=== PATIENT | female | born 1980 | race Caucasian/White ===

== ENCOUNTER → 2020-06-03 12:14 | Outpatient (CLI) | payer BC, SELFPAY ==
--- NOTE | 2020-06-03 | DI.US.S_ITS ---
PROCEDURE: US PELVIC COMPLETE INDICATIONS: LEFT PELVIC PAIN TECHNIQUE: Real-time scanning was performed of the pelvic organs, with image documentation. Additional endovaginal scanning was necessary due to incomplete visualization of the adnexal and endometrial structures by transabdominal scanning. COMPARISON: None. FINDINGS: Transabdominal scanning: Limited scanning through the kidneys shows no hydronephrosis. No pathologic free abdominal or pelvic fluid. Endovaginal scanning: Uterus: Uterus is normal in size at 10.2 x 5.6 x 6.5 cm. The endometrium measures 6.5 mm in combined thickness. Ovaries: Left ovary measures 3.3 x 2.5 x 2.2 cm and the right ovary is not visualized. Dominant 16 mm left follicular cyst. IMPRESSION: No source for left pelvic pain identified. Dictated by: Silverio Sosa [facility] Interpreted: Wale Philippe MD on 06/03/2020 at 13:02 Approved by: Wale Philippe M.D. on 06/03/2020 at 14:01
== END ==
PROVIDERS: PCP Family Medicine; Referring Provider Naturopath; Visit Provider Naturopath
DX: R10.2 Pelvic and perineal pain (principal)
CPT/HCPCS: 76830; 76856

== ENCOUNTER → 2020-06-19 09:26 | Outpatient (CLI) | payer BC, SELFPAY ==
[2020-06-19 09:54] LABS: COVID19 -Nasal RAPID Negative (Negative)
== END ==
PROVIDERS: PCP Family Medicine; Referring Provider Physician Assistant; Visit Provider Physician Assistant
DX: R09.81 Nasal congestion (principal); R11.0 Nausea; R50.9 Fever, unspecified
CPT/HCPCS: 87635

== ENCOUNTER → 2021-06-05 07:35 | Outpatient (CLI) | payer BC, SELFPAY ==
--- NOTE | 2021-06-05 | DI.MG.S_ITS ---
BILATERAL DIGITAL SCREENING MAMMOGRAM 3D/2D WITH CAD: 06/05/2021 CLINICAL: Baseline exam. Routine screening. Family history of breast cancer. No prior exams were available for comparison. There are scattered fibroglandular elements in both breasts. Current study was also evaluated with a Computer Aided Detection (CAD) system. No significant masses, calcifications, or other findings are seen in either breast. IMPRESSION: NEGATIVE There is no mammographic evidence of malignancy. A 1 year screening mammogram is recommended. This exam was interpreted at Station ID: [id number]. NOTE: For mammograms, a report in lay terms will be sent to the patient. Approximately 15% of breast malignancies will not be visualized mammographically. In the management of a palpable breast mass, a negative mammogram must not discourage biopsy of a clinically suspicious lesion. Electronically Signed By: Skyler stein/fabiana:06/05/2021 10:54:56 letter sent: Normal Exam ACR BI-RADS Category 1: Negative 3341F
== END ==
PROVIDERS: PCP Internal Medicine; Referring Provider Internal Medicine; Visit Provider Internal Medicine
DX: Z12.31 Encounter for screening mammogram for malignant neoplasm of breast (principal); Z80.3 Family history of malignant neoplasm of breast
CPT/HCPCS: 77063; 77067

== ENCOUNTER → 2022-04-08 10:15 | Outpatient (CLI) | payer BC, SELFPAY ==
--- NOTE | 2022-04-08 10:17 | DI.RAD.S_ITS ---
PROCEDURE: XR CHEST 2V INDICATIONS: Cough TECHNIQUE: 2 views of the chest were acquired. COMPARISON: [facility], , CHEST 2 VIEW, 07/14/2016, 12:32. FINDINGS: Surgical changes and devices: None. Lungs and pleura: Lungs are clear. No pleural effusions or pneumothorax. Mediastinum: Mediastinal contours are normal. Heart size is normal. Bones and chest wall: No suspicious bony abnormalities. Soft tissues appear unremarkable. IMPRESSION: Normal chest. No infiltrates. Dictated by: Evan Jaquez M.D. on 04/08/2022 at 10:07 Approved by: Evan Jaquez M.D. on 04/08/2022 at 10:08
== END ==
PROVIDERS: PCP Internal Medicine; Referring Provider Nurse Practitioner Family; Visit Provider Nurse Practitioner Family
DX: R05.9 Cough, unspecified (principal)
CPT/HCPCS: 71046

== ENCOUNTER 2022-06-07 09:10 | Emergency (ER) | payer BC, SELFPAY ==
[2022-06-07] VITALS (7 sets, daily range): BP systolic 116–144; BP diastolic 65–90; PULSE 74–87; RESP 15–26; TEMP 36.4; O2SAT 95–98; BMI 37.2
--- NOTE | 2022-06-07 09:24 | DI.RAD.S_ITS ---
PROCEDURE: XR CHEST 1V INDICATIONS: chest pain TECHNIQUE: One view of the chest was acquired. COMPARISON: None. FINDINGS: Surgical changes and devices: None. Lungs and pleura: Lungs are clear. No pleural effusions or pneumothorax. Mediastinum: Mediastinal contours appear normal. Heart size is normal. Bones and chest wall: No suspicious bony lesions. Overlying soft tissues appear unremarkable. IMPRESSION: No acute cardiopulmonary process demonstrated radiographically. Dictated by: Yo Oconnor M.D. on 06/07/2022 at 9:08 Approved by: Yo Oconnor M.D. on 06/07/2022 at 9:09
[2022-06-07 09:42] LABS: Add Manual Diff / Slide Review NO; Basophils Absolute Auto 100 /uL (0-100); Basophils Percent Auto 0.8 % (0-2); Eosinophils Absolute Auto 500 /uL (0-450); Eosinophils Percent Auto 6.6 % (2-4); Hematocrit 43.3 % (36-46); Hemoglobin 14.6 g/dL (12.0-16.0); Lymphocytes Absolute Auto 2500 /uL (1100-4500); Lymphocytes Percent Auto 29.7 % (25-40); Mean Corpuscular HGB Conc 33.7 % (30-36); Mean Corpuscular Hemoglobin 30.2 PG (26-34); Mean Corpuscular Volume 89.9 fL (80-100); Monocytes Absolute Auto 500 /uL (0-900); Monocytes Percent Auto 6.4 % (3-14); Neutrophils Absolute Auto 4700 /uL (1500-7000); Neutrophils Percent Auto 56.5 % (50-75); Platelet Count 216 X10^3/uL (150-400); Red Blood Cell Count 4.82 X10^6/uL (4.0-5.2); Red Cell Distribution Width 13.5 % (11.6-14.8); White Blood Cell Count 8.3 X10^3/uL (4.5-11.0)
[2022-06-07 09:46] LABS: INR 1.1 (0.9-1.3); Prothrombin Time 12.5 SECONDS (10.1-12.7)
[2022-06-07 09:49] LABS: PTT Partial Thromboplastin Tim 33 SECONDS (26-36)
[2022-06-07 09:51] LABS: Alanine Aminotransferase 33 IU/L (<35); Albumin 4.2 g/dL (3.5-5.0); Albumin Globulin Ratio 1.4 (1.0-2.8); Alkaline Phosphatase 81 U/L (38-126); Aspartate Aminotransferase 26 IU/L (14-36); BUN Creatinine Ratio 26.9 (6-22); Bilirubin Total 0.3 mg/dL (0.2-1.3); Blood Urea Nitrogen 18 mg/dL (7-17); Calcium 8.8 mg/dL (8.4-10.2); Carbon Dioxide 28 mmol/L (22-32); Chloride 103 mmol/L (98-107); Creatine Kinase 48 U/L (30-135); Estimated Glomerular Filt Rate > 60 mL/min (>60); Globulin 3.1 g/dL (1.7-4.1); Glucose 94 mg/dL (70-100); HEMOLYSIS < 15 (0-50); Lipase 55 U/L (23-300); Potassium 3.9 mmol/L (3.4-5.1); Sodium 141 mmol/L (137-145); Total Protein 7.3 g/dL (6.3-8.2)
[2022-06-07 10:02] LABS: Troponin I < 0.012 ng/mL (0.01-0.034)
--- NOTE | 2022-06-07 10:46 | ED_ITS ---
HPI - Chest Pain General Chief Complaint: Chest Pain Stated Complaint: N t-7/ chest ache 3x t-7/upper back pain Time Seen by Provider: 06/07/22 10:40 Source: patient Mode of arrival: Ambulatory Limitations: no limitations History of Present Illness HPI narrative: Patient here this morning for evolving atypical left-sided chest discomfort for the past 2 weeks. Has had off and on left-sided chest discomfort tightness for the past 2 weeks. Has felt very tired especially with walking. Has had unexplained nausea over the weekend. This morning had left upper back discomfort that has resolved. However still has nausea. Patient has family history of early coronary disease in their 30s and 40s. Notably her father. Never had stress test or echocardiogram in the past. Denies any pain at this time. Denies does not want a test. She took 2 home tests which were both negative Related Data Home Medications Medication Instructions Recorded Confirmed cholecalciferol (vitamin D3) 10 4,000 unit PO ##0 07/13/16 04/25/22 mcg/mL (400 unit/mL) oral drops folic acid 800 mcg tablet 0.8 mg PO QDAY ##0 07/13/16 04/25/22 Previous Rx's Medication Instructions Recorded benzonatate 100 mg capsule 100 mg PO BID PRN cough #20 caps 04/08/22 Allergies Allergy/AdvReac Type Severity Reaction Status Date / Time strawberry Allergy Unknown ear Verified 06/07/22 09:20 pain/infection No Known Allergies Allergy Uncoded 04/25/22 15:39 Review of Systems Review of Systems Narrative: GENERAL: negative chills, fatigue, malaise, fever, negative sweats. HEENT: negative sinus pain, ear pain, sore throat RESPIRATORY: negative dyspnea, cough CARDIOVASCULAR: Positive chest pain, negative palpitations GASTROINTESTINAL: Positive nausea, negative vomiting, abdominal pain : negative dysuria, frequency, hematuria MUSCULOSKELETAL: negative muscle or bony pain SKIN: negative rash, skin lesions NEUROLOGIC: negative weakness, numbness ROS Unobtainable: All systems reviewed & are unremarkable except as noted in HPI and below Patient History Medical History URI (upper respiratory infection) Social History Smoking Status: Never smoker Smoking Status: Never smoker alcohol intake frequency: holidays/special occasions only Substance Use Type: does not use Exam Narrative Exam Narrative: GENERAL: in no distress, not toxic not dyspneic HEAD: Normocephalic. EYES: Pupils equal round No scleral icterus. ENT: Mucous membranes moist. NECK: Trachea midline. CARDIOVASCULAR: Regular rate and rhythm without murmurs RESPIRATORY: Clear to auscultation. Breath sounds equal bilaterally. No wheezes, rales, or rhonchi. GASTROINTESTINAL: Abdomen soft, non-tender EXTREMITIES: No gross deformities. BACK: No flank tenderness. NEURO: AOx4. SKIN: Warm and dry PSYCH: Not anxious, is cooperative Initial Vital Signs Initial Vital Signs: Vital Signs Temperature 97.5 F L 06/07/22 09:19 Pulse Rate 74 06/07/22 09:19 Respiratory Rate 15 06/07/22 09:19 Blood Pressure 144/90 H 06/07/22 09:19 Pulse Oximetry 98 06/07/22 09:19 Oxygen Delivery Method 06/07/22 09:19 Course Course Course Narrative: No new issues during course of stay Orders Ordered: ED Orders 06/07/22 09:24 XR chest 1V Stat EKG-12 Lead Stat 06/07/22 09:30 A1C [Hemoglobin A1C% w Est Avg Glu] Urgent Complete Blood Count AUTO DIFF Stat Comprehensive Metabolic Panel Stat Lipase Stat Lipid Panel Urgent Magnesium Stat NT-proBNP (BNP-Adult 18+) Urgent Partial Thromboplastin Time Stat Prothrombin Time INR Stat TSH w/ Reflex to FT4 Urgent Troponin & CK Cardiac Panel Stat 06/07/22 11:17 EC echo doppler complete Stat 06/07/22 11:36 Exercise treadmill NON NUC Urgent 06/07/22 11:40 COVID19 -Nasal RAPID/Pre-Proc Stat Trop I [Troponin I] Stat 06/07/22 14:17 Trop I [Troponin I] Stat Discontinued Medications Acetaminophen (Acetaminophen 325 Mg Tablet) 650 mg PO Q6H PRN PRN Reason: Fever/Mild Pain (1-3) Aspirin (Aspirin 81 Mg Chew Tab) 324 mg PO NOW ONE Stop: 06/07/22 10:46 Last Admin: 06/07/22 12:04 Dose: 324 mg Documented By: RLS Aspirin (Aspirin Ec 81 Mg Tablet) 81 mg PO DAILY ELENA Melatonin (Melatonin 3 Mg Tablet) 6 mg PO BEDTIME PRN PRN Reason: Insomnia Naloxone HCl (Naloxone 0.4 Mg/Ml Vial) 0.2 mg IV Q2MIN PRN PRN Reason: Opiate Reversal Ondansetron HCl (Ondansetron 4 Mg/2 Ml Inj) 4 mg IV NOW ONE Stop: 06/07/22 10:46 Last Admin: 06/07/22 12:04 Dose: 4 mg Documented By: NICOLE Polyethylene Glycol (Polyethylene Glycol 3350 17 Gm Powd.Pack) 17 gm PO DAILY PRN PRN Reason: Constipation Sennosides (Sennosides 8.6 Mg Tablet) 8.6 mg PO BID PRN PRN Reason: Constipation Reevaluation(s) Reevaluation #1: Spoke with patient results as well as my conversation with lithographic artist. No chest pain at this time. She does understand agree for admission for stress test Time: 11:20 Reevaluation #2: After hospitalist agree to admit and started putting orders in. Patient has decided she does not want to stay or be admitted. I reviewed with her results do not exclude any coronary events. I employed with her to stay to be admitted. She needs a stress test. Echocardiogram has been completed but does not clear her medically for any coronary cardiac event. She is awake alert oriented x4. Risk of leaving against medical advice includes but not limited to heart attack stroke permanent injury loss of limb or organs or worsening symptoms or permanent injury. She refuses to stay Time: 14:30 Consultations Consultation #1: Spoke with cardiology, Dr kinsey, recommends patient have echocardiogram and treadmill stress test here. May need admission if not available to do today. Time: 11:18 Consultation #2: Spoke with Dr. Canela, hospitalist, will admit patient Vital Signs Vital signs: Vital Signs - 8 hr 06/07/22 10:30 06/07/22 10:32 06/07/22 10:32 Pulse Rate 78 79 Respiratory Rate Blood Pressure 131/84 Pulse Oximetry 97 97 Oxygen Delivery Method 06/07/22 11:00 06/07/22 11:00 06/07/22 11:30 Pulse Rate 81 Respiratory Rate 15 Blood Pressure 123/74 116/75 Pulse Oximetry 95 Oxygen Delivery Method Room Air 06/07/22 11:30 06/07/22 12:00 06/07/22 12:00 Pulse Rate 80 76 Respiratory Rate 17 Blood Pressure 134/65 Pulse Oximetry 96 98 Oxygen Delivery Method 06/07/22 12:30 06/07/22 12:30 Pulse Rate 87 Respiratory Rate 26 H Blood Pressure 130/88 Pulse Oximetry 98 Oxygen Delivery Method MDM - Chest Pain Differential Diagnosis Differential diagnosis: Likely stable angina, unstable angina pectoris, atypical chest pain, st elevation myocardial infarction and chest pain Lab Data Result diagrams: 06/07/22 09:30 06/07/22 09:30 Labs: Lab Results 06/07/22 06/07/22 06/07/22 Range/Units 09:30 09:30 09:30 WBC 8.3 (4.5-11.0) X10^3/uL RBC 4.82 (4.0-5.2) X10^6/uL Hgb 14.6 (12.0-16.0) g/dL Hct 43.3 (36-46) % MCV 89.9 (80-100) fL MCH 30.2 (26-34) PG MCHC 33.7 (30-36) % RDW 13.5 (11.6-14.8) % Plt Count 216 (150-400) X10^3/uL Neut % (Auto) 56.5 (50-75) % Lymph % (Auto) 29.7 (25-40) % [place] % (Auto) 6.4 (3-14) % Eos % (Auto) 6.6 H (2-4) % Baso % (Auto) 0.8 (0-2) % Neut # (Auto) 4700 (6810-7566) /uL Lymph # (Auto) 2500 (4557-7984) /uL [place] # (Auto) 500 (0-900) /uL Eos # (Auto) 500 H (0-450) /uL Baso # (Auto) 100 (0-100) /uL PT 12.5 (10.1-12.7) SECONDS INR 1.1 (0.9-1.3) APTT 33 (26-36) SECONDS Sodium 141 (137-145) mmol/L Potassium 3.9 (3.4-5.1) mmol/L Chloride 103 (98-107) mmol/L Carbon Dioxide 28 (22-32) mmol/L BUN 18 H (7-17) mg/dL Creatinine 0.67 (0.52-1.04) mg/dL Estimated GFR > 60 (>60) mL/min BUN/Creatinine Ratio 26.9 H (6-22) Glucose 94 (70-100) mg/dL Hemoglobin A1c (4.0-6.0) % Calcium 8.8 (8.4-10.2) mg/dL Magnesium 2.0 (1.6-2.3) mg/dL Total Bilirubin 0.3 (0.2-1.3) mg/dL AST 26 (14-36) IU/L ALT 33 (<35) IU/L Alkaline Phosphatase 81 (38-126) U/L Total Creatine Kinase 48 (30-135) U/L CK-MB (CK-2) TNP CK-MB (CK-2) Rel Index TNP Troponin I < 0.012 (0.01-0.034) ng/mL NT-Pro-B Natriuret Pep (<125) pg/mL Total Protein 7.3 (6.3-8.2) g/dL Albumin 4.2 (3.5-5.0) g/dL Globulin 3.1 (1.7-4.1) g/dL Albumin/Globulin Ratio 1.4 (1.0-2.8) Triglycerides (35-150) mg/dL Cholesterol (140-199) mg/dL LDL Cholesterol, Calc (<100) mg/dL HDL Cholesterol (40-60) mg/dL Lipase 55 (23-300) U/L TSH (0.47-4.68) uIU/mL SARS-CoV-2 (PCR) (Negative) 06/07/22 06/07/22 06/07/22 Range/Units 09:30 09:30 09:30 WBC (4.5-11.0) X10^3/uL RBC (4.0-5.2) X10^6/uL Hgb (12.0-16.0) g/dL Hct (36-46) % MCV (80-100) fL MCH (26-34) PG MCHC (30-36) % RDW (11.6-14.8) % Plt Count (150-400) X10^3/uL Neut % (Auto) (50-75) % Lymph % (Auto) (25-40) % [place] % (Auto) (3-14) % Eos % (Auto) (2-4) % Baso % (Auto) (0-2) % Neut # (Auto) (0858-9240) /uL Lymph # (Auto) (0879-0197) /uL [place] # (Auto) (0-900) /uL Eos # (Auto) (0-450) /uL Baso # (Auto) (0-100) /uL PT (10.1-12.7) SECONDS INR (0.9-1.3) APTT (26-36) SECONDS Sodium (137-145) mmol/L Potassium (3.4-5.1) mmol/L Chloride (98-107) mmol/L Carbon Dioxide (22-32) mmol/L BUN (7-17) mg/dL Creatinine (0.52-1.04) mg/dL Estimated GFR (>60) mL/min BUN/Creatinine Ratio (6-22) Glucose (70-100) mg/dL Hemoglobin A1c 5.9 (4.0-6.0) % Calcium (8.4-10.2) mg/dL Magnesium (1.6-2.3) mg/dL Total Bilirubin (0.2-1.3) mg/dL AST (14-36) IU/L ALT (<35) IU/L Alkaline Phosphatase (38-126) U/L Total Creatine Kinase (30-135) U/L CK-MB (CK-2) CK-MB (CK-2) Rel Index Troponin I (0.01-0.034) ng/mL NT-Pro-B Natriuret Pep (<125) pg/mL Total Protein (6.3-8.2) g/dL Albumin (3.5-5.0) g/dL Globulin (1.7-4.1) g/dL Albumin/Globulin Ratio (1.0-2.8) Triglycerides 230 H (35-150) mg/dL Cholesterol 173 (140-199) mg/dL LDL Cholesterol, Calc 96 (<100) mg/dL HDL Cholesterol 31 L (40-60) mg/dL Lipase (23-300) U/L TSH 2.42 (0.47-4.68) uIU/mL SARS-CoV-2 (PCR) (Negative) 06/07/22 06/07/22 06/07/22 Range/Units 09:30 11:40 11:40 WBC (4.5-11.0) X10^3/uL RBC (4.0-5.2) X10^6/uL Hgb (12.0-16.0) g/dL Hct (36-46) % MCV (80-100) fL MCH (26-34) PG MCHC (30-36) % RDW (11.6-14.8) % Plt Count (150-400) X10^3/uL Neut % (Auto) (50-75) % Lymph % (Auto) (25-40) % [place] % (Auto) (3-14) % Eos % (Auto) (2-4) % Baso % (Auto) (0-2) % Neut # (Auto) (8696-7484) /uL Lymph # (Auto) (8100-4842) /uL [place] # (Auto) (0-900) /uL Eos # (Auto) (0-450) /uL Baso # (Auto) (0-100) /uL PT (10.1-12.7) SECONDS INR (0.9-1.3) APTT (26-36) SECONDS Sodium (137-145) mmol/L Potassium (3.4-5.1) mmol/L Chloride (98-107) mmol/L Carbon Dioxide (22-32) mmol/L BUN (7-17) mg/dL Creatinine (0.52-1.04) mg/dL Estimated GFR (>60) mL/min BUN/Creatinine Ratio (6-22) Glucose (70-100) mg/dL Hemoglobin A1c (4.0-6.0) % Calcium (8.4-10.2) mg/dL Magnesium (1.6-2.3) mg/dL Total Bilirubin (0.2-1.3) mg/dL AST (14-36) IU/L ALT (<35) IU/L Alkaline Phosphatase (38-126) U/L Total Creatine Kinase (30-135) U/L CK-MB (CK-2) CK-MB (CK-2) Rel Index Troponin I < 0.012 (0.01-0.034) ng/mL NT-Pro-B Natriuret Pep < 11 (<125) pg/mL Total Protein (6.3-8.2) g/dL Albumin (3.5-5.0) g/dL Globulin (1.7-4.1) g/dL Albumin/Globulin Ratio (1.0-2.8) Triglycerides (35-150) mg/dL Cholesterol (140-199) mg/dL LDL Cholesterol, Calc (<100) mg/dL HDL Cholesterol (40-60) mg/dL Lipase (23-300) U/L TSH (0.47-4.68) uIU/mL SARS-CoV-2 (PCR) Negative (Negative) 06/07/22 Range/Units 14:17 WBC (4.5-11.0) X10^3/uL RBC (4.0-5.2) X10^6/uL Hgb (12.0-16.0) g/dL Hct (36-46) % MCV (80-100) fL MCH (26-34) PG MCHC (30-36) % RDW (11.6-14.8) % Plt Count (150-400) X10^3/uL Neut % (Auto) (50-75) % Lymph % (Auto) (25-40) % [place] % (Auto) (3-14) % Eos % (Auto) (2-4) % Baso % (Auto) (0-2) % Neut # (Auto) (2602-5939) /uL Lymph # (Auto) (2206-0514) /uL [place] # (Auto) (0-900) /uL Eos # (Auto) (0-450) /uL Baso # (Auto) (0-100) /uL PT (10.1-12.7) SECONDS INR (0.9-1.3) APTT (26-36) SECONDS Sodium (137-145) mmol/L Potassium (3.4-5.1) mmol/L Chloride (98-107) mmol/L Carbon Dioxide (22-32) mmol/L BUN (7-17) mg/dL Creatinine (0.52-1.04) mg/dL Estimated GFR (>60) mL/min BUN/Creatinine Ratio (6-22) Glucose (70-100) mg/dL Hemoglobin A1c (4.0-6.0) % Calcium (8.4-10.2) mg/dL Magnesium (1.6-2.3) mg/dL Total Bilirubin (0.2-1.3) mg/dL AST (14-36) IU/L ALT (<35) IU/L Alkaline Phosphatase (38-126) U/L Total Creatine Kinase (30-135) U/L CK-MB (CK-2) CK-MB (CK-2) Rel Index Troponin I < 0.012 (0.01-0.034) ng/mL NT-Pro-B Natriuret Pep (<125) pg/mL Total Protein (6.3-8.2) g/dL Albumin (3.5-5.0) g/dL Globulin (1.7-4.1) g/dL Albumin/Globulin Ratio (1.0-2.8) Triglycerides (35-150) mg/dL Cholesterol (140-199) mg/dL LDL Cholesterol, Calc (<100) mg/dL HDL Cholesterol (40-60) mg/dL Lipase (23-300) U/L TSH (0.47-4.68) uIU/mL SARS-CoV-2 (PCR) (Negative) Imaging Data Chest x-ray: Radiologist's Impression: [address] [address]PGuj ReportSigned Patient: Benoit GarciaMR#: [id number]: 08/1980Acct:[id number]/Sex: 41 / FDate of Service: 06/07/22Loc: EDAccession Number: [id number] Procedure: XR chest 1V Ordering Provider: Italo Roche MD PROCEDURE: XR CHEST 1V INDICATIONS: chest pain TECHNIQUE: One view of the chest was acquired. COMPARISON: None. FINDINGS: Surgical changes and devices: None. Lungs and pleura: Lungs are clear. No pleural effusions or pneumothorax. Mediastinum: Mediastinal contours appear normal. Heart size is normal. Bones and chest wall: No suspicious bony lesions. Overlying soft tissues appear unremarkable. IMPRESSION: No acute cardiopulmonary process demonstrated radiographically. Dictated by: Yo Oconnor M.D. on 06/07/2022 at 9:08 Approved by: Yo Oconnor M.D. on 06/07/2022 at 9:09 Echocardiogram: Radiologist's Impression: [address] [address] Echocardiography Report Signed Patient: Benoit Garcia MR#: [id number] : 1980 Acct:[id number] Age/Sex: 41 / F Date of Service: 06/07/22 Loc: 90B-1 Accession Number: [id number] ?? Procedure: EC echo doppler complete Ordering Provider: Italo Roche MD [facility]? +---------+ : ? :? [address] ? : ? : : ? :? [place] ? : ? : : ? :? [address] ? : ? : : ? : ? Phone: [phone] ? : [phone]? [phone]? +---------+ ? Echocardiogram Report + + :Name: BENOIT GARCIA? Study Date: 06/07/2022 ? Height: 63 in? : :Hospital ? ReadingLocation: ? Weight: 210 lb : : ? Gender: Female ? BSA: 2.0 m2? ? : :: 1980? Age: 41 yrs? BP: 116/75 mmHg: :Reason For Study: Chest pain ? : :Ordering Physician:? : :ITALO ROCHE? Performed By: James Madrigal ? : :Referring: ITALO ROCHE ? : + + Interpretation Summary The ejection fraction is estimated to be 55-60%. There are no focal wall motion abnormalities. Diastolic parameters suggest probable normal left ventricular diastolic function and normal filling pressures. The right ventricle is normal in size and function. Pulmonary artery pressures cannot be estimated because of the lack of a measurable TR jet velocity. No significant valvular disease. ? Procedure: ? A two-dimensional transthoracic echocardiogram with color flow and Doppler was performed. The study quality was technically adequate. There is no prior echocardiogram noted for this patient. The patient was in normal sinus rhythm during the exam. Left Ventricle: ? The left ventricle is normal in size and wall thickness. Left ventricular systolic function is normal. The ejection fraction is estimated to be 55-60%. There are no focal wall motion abnormalities. Diastolic parameters suggest probable normal left ventricular diastolic function and normal filling pressures. Right Ventricle: ? The right ventricle is normal in size and function. Atria: ? Both atria are normal in size. The interatrial septum grossly appears intact with no obvious evidence for an atrial septal defect. Mitral Valve: ? The mitral valve is normal in structure and function. There is no mitral regurgitation noted. Aortic Valve: ? The aortic valve is normal in structure and function. There is no hemodynamically significant valvular aortic stenosis. No aortic regurgitation is present. Tricuspid Valve: ? The tricuspid valve is normal in structure and function. There is a trace or physiologic amount of tricuspid regurgitation. Pulmonary artery pressures cannot be estimated because of the lack of a measurable TR jet velocity. Pulmonic Valve: ? The pulmonic valve is normal in structure and function. There is no pulmonic valvular regurgitation. Great Vessels: ? The aortic root is normal size. The dimensions of the ascending aorta are normal. The IVC is of normal diameter and collapses greater than 50% with a sniff. This suggests a low right atrial pressure of 3 mm Hg. Pericardium/ Pleura ? There is no pericardial effusion. There is no pleural effusion. ? MMode/2D Measurements & Calculations LVIDd: 5.0 cm ? LVOT diam: 2.0 cm LVIDs: 3.3 cm ? Ao root diam: 3.0 cm FS: 34.7 %? asc Aorta Diam: 2.9 cm IVSd: 0.81 cm LVPWd: 0.82 cm LV oneal. diameter/BSA (cm/m^2): 2.5 LV sys. diameter/BSA (cm/m^2): 1.6 ? LA A2 area: 15.1 cm2? RA long axis: 4.1 cm LA A4 area: 16.4 cm2? RA area: 11.3 cm2 LA length (vol): 5.0 cm ? RA vol: 26.3 ml LA vol: 42.3 ml ? RA : 13.3 ml/m2 LA vol index: 21.4 ml/m2 ? TAPSE: 2.4 cm ? Doppler Measurements & Calculations Ao V2 max: 134.6 cm/sec? LVOT Max Woody: 129.2 cm/sec Ao V2 mean: 92.4 cm/sec? LV V1 max P.7 mmHg Ao max P.2 mmHg? LV V1 VTI: 26.4 cm Ao mean P.8 mmHg ? JESS(I,D): 3.3 cm2 Ao V2 VTI: 25.8 cm ? JESS(V,D): 3.1 cm2 ? sev ratio: 1.0 ? JESS indexed to BSA (cm^2/m^2): 1.7 ? MV E max woody: 87.3 cm/sec? SV(LVOT): 85.5 ml MV A max woody: 88.5 cm/sec MV E/A: 0.99 Med Peak E' Woody: 6.0 cm/sec E/E' med: 14.5 Lat Peak E' Woody: 12.0 cm/sec E/E' lat: 7.3 E/e' average: 10.9 MV dec time: 0.22 sec ? Reading Physician:PM ECG Data Interpretation: Normal sinus rhythm rate [address] elevation or depression. MDM Narrative Medical decision making narrative: Appropriate for admission for atypical chest pain that has evolving features past 2 weeks. I did review with lithographic artist in recommends stress test and echocardiogram. Needs treadmill stress test. Spoke with patient and agrees for admission. Spoke with Dr. Canela and he will admit patient Disposition change. Please see discussion note I had with patient leaving against medical advice Discharge Plan Departure Patient Disposition: Left Against Medical Advice Clinical Impression: Left against medical advice Prescriptions: No Action benzonatate 100 mg capsule 100 mg PO BID PRN (Reason: cough) Qty: 20 0RF folic acid 0.8 MG tablet 0.8 mg PO QDAY Qty: 0 cholecalciferol (vitamin D3) 400 UNIT/1 ML drops 4,000 unit PO Qty: 0 Stand Alone Forms: Against Medical Advice
--- NOTE | 2022-06-07 11:17 | DI.ECHO.S_ITS ---
[facility]+ [facility] +---------+ : : [address] : [address] : : : : [id number] : : : : Phone: [phone]+ Echocardiogram Report + + :Name: BENOIT GARCIA Study Date: 06/07/2022 Height: 63 in : :[facility] ReadingLocation: Weight: 210 lb : : Gender: Female BSA: 2.0 m2 : :: 1980 Age: 41 yrs BP: 116/75 mmHg: :Reason For Study: Chest pain : :Ordering Physician: : :ITALO ROCHE Performed By: James Madrigal : :Referring: ITALO ROCHE : + + Interpretation Summary The ejection fraction is estimated to be 55-60%. There are no focal wall motion abnormalities. Diastolic parameters suggest probable normal left ventricular diastolic function and normal filling pressures. The right ventricle is normal in size and function. Pulmonary artery pressures cannot be estimated because of the lack of a measurable TR jet velocity. No significant valvular disease. Procedure: A two-dimensional transthoracic echocardiogram with color flow and Doppler was performed. The study quality was technically adequate. There is no prior echocardiogram noted for this patient. The patient was in normal sinus rhythm during the exam. Left Ventricle: The left ventricle is normal in size and wall thickness. Left ventricular systolic function is normal. The ejection fraction is estimated to be 55-60%. There are no focal wall motion abnormalities. Diastolic parameters suggest probable normal left ventricular diastolic function and normal filling pressures. Right Ventricle: The right ventricle is normal in size and function. Atria: Both atria are normal in size. The interatrial septum grossly appears intact with no obvious evidence for an atrial septal defect. Mitral Valve: The mitral valve is normal in structure and function. There is no mitral regurgitation noted. Aortic Valve: The aortic valve is normal in structure and function. There is no hemodynamically significant valvular aortic stenosis. No aortic regurgitation is present. Tricuspid Valve: The tricuspid valve is normal in structure and function. There is a trace or physiologic amount of tricuspid regurgitation. Pulmonary artery pressures cannot be estimated because of the lack of a measurable TR jet velocity. Pulmonic Valve: The pulmonic valve is normal in structure and function. There is no pulmonic valvular regurgitation. Great Vessels: The aortic root is normal size. The dimensions of the ascending aorta are normal. The IVC is of normal diameter and collapses greater than 50% with a sniff. This suggests a low right atrial pressure of 3 mm Hg. Pericardium/ Pleura There is no pericardial effusion. There is no pleural effusion. MMode/2D Measurements & Calculations LVIDd: 5.0 cm LVOT diam: 2.0 cm LVIDs: 3.3 cm Ao root diam: 3.0 cm FS: 34.7 % asc Aorta Diam: 2.9 cm IVSd: 0.81 cm LVPWd: 0.82 cm LV oneal. diameter/BSA (cm/m^2): 2.5 LV sys. diameter/BSA (cm/m^2): 1.6 LA A2 area: 15.1 cm2 RA long axis: 4.1 cm LA A4 area: 16.4 cm2 RA area: 11.3 cm2 LA length (vol): 5.0 cm RA vol: 26.3 ml LA vol: 42.3 ml RA : 13.3 ml/m2 LA vol index: 21.4 ml/m2 TAPSE: 2.4 cm Doppler Measurements & Calculations Ao V2 max: 134.6 cm/sec LVOT Max Woody: 129.2 cm/sec Ao V2 mean: 92.4 cm/sec LV V1 max P.7 mmHg Ao max P.2 mmHg LV V1 VTI: 26.4 cm Ao mean P.8 mmHg JESS(I,D): 3.3 cm2 Ao V2 VTI: 25.8 cm JESS(V,D): 3.1 cm2 sev ratio: 1.0 JESS indexed to BSA (cm^2/m^2): 1.7 MV E max woody: 87.3 cm/sec SV(LVOT): 85.5 ml MV A max woody: 88.5 cm/sec MV E/A: 0.99 Med Peak E' Woody: 6.0 cm/sec E/E' med: 14.5 Lat Peak E' Woody: 12.0 cm/sec E/E' lat: 7.3 E/e' average: 10.9 MV dec time: 0.22 sec Reading Physician:DONA
--- NOTE | 2022-06-07 11:39 | P.HP_ITS ---
History of Present Illness History of Present Illness Date Patient Seen: 06/07/22 Chief complaint: N t-7/ chest ache 3x t-7/upper back pain Narrative: Keren Avalos is a 41yo F with no significant past medical history presenting with 2 weeks of atypical chest pain with associated nausea. Patient History Medical History URI (upper respiratory infection) Family & Social History Safety & Behavioral: Feels Safe in Current Yes Environment Been Physically Hurt or No Threatened By a Person Tobacco & Substance use: Smoking Status Never smoker alcohol intake frequency holiday/special occasion Substance Use Type does not use Meds Home Medications and Allergies Home Medications Medication Instructions Recorded Confirmed Type cholecalciferol (vitamin D3) 10 4,000 unit PO ##0 07/13/16 04/25/22 History mcg/mL (400 unit/mL) oral drops folic acid 800 mcg tablet 0.8 mg PO QDAY ##0 07/13/16 04/25/22 History benzonatate 100 mg capsule 100 mg PO BID PRN cough #20 caps 04/08/22 04/25/22 Rx Allergies Allergy/AdvReac Type Severity Reaction Status Date / Time strawberry Allergy Unknown ear Verified 06/07/22 09:20 pain/infection No Known Allergies Allergy Uncoded 04/25/22 15:39 Review of Systems Review of Systems Narrative: All other systems reviewed with the patient and are negative unless otherwise stated. Exam Vital Signs (past 8 hours): - 06/07/22 09:19 06/07/22 10:30 06/07/22 10:32 Temperature 97.5 F L Pulse Rate 74 78 Respiratory Rate 15 Blood Pressure 144/90 H 131/84 Pulse Oximetry 98 97 Oxygen Delivery Method Room Air 06/07/22 10:32 Temperature Pulse Rate 79 Respiratory Rate Blood Pressure Pulse Oximetry 97 Oxygen Delivery Method Oxygen Delivery Method Room Air Narrative Exam Narrative: GEN: no acute distress HEENT: moist mucous membranes, PERRL NECK: trachea midline, no JVD CV: regular rate and rhythm, no murmurs PULM: clear bilaterally ABD: soft, nontender, nondistended, no organomegaly EXT: warm and well perfused with no edema NEURO: awake, alert, oriented, no focal deficits Objective Labs Result Diagrams: 06/07/22 09:30 06/07/22 09:30 Labs: Laboratory Results - last 24 hr 06/07/22 06/07/22 06/07/22 09:30 09:30 09:30 WBC 8.3 RBC 4.82 Hgb 14.6 Hct 43.3 MCV 89.9 MCH 30.2 MCHC 33.7 RDW 13.5 Plt Count 216 Neut % (Auto) 56.5 Lymph % (Auto) 29.7 [place] % (Auto) 6.4 Eos % (Auto) 6.6 H Baso % (Auto) 0.8 Neut # (Auto) 4700 Lymph # (Auto) 2500 [place] # (Auto) 500 Eos # (Auto) 500 H Baso # (Auto) 100 PT 12.5 INR 1.1 APTT 33 Sodium 141 Potassium 3.9 Chloride 103 Carbon Dioxide 28 BUN 18 H Creatinine 0.67 Estimated GFR > 60 BUN/Creatinine Ratio 26.9 H Glucose 94 Calcium 8.8 Magnesium 2.0 Total Bilirubin 0.3 AST 26 ALT 33 Alkaline Phosphatase 81 Total Creatine Kinase 48 CK-MB (CK-2) TNP CK-MB (CK-2) Rel Index TNP Troponin I < 0.012 Total Protein 7.3 Albumin 4.2 Globulin 3.1 Albumin/Globulin Ratio 1.4 Lipase 55 Assessment & Plan Assessment & Plan narrative: # chest pain rule out -chest pain is a tip atypical with a left scapular pain, however patient high risk given strong family cardiac history -ED spoke with Cardiology who recommended exercise treadmill stress test -NPO for exercise stress tomorrow -aspirin 81 mg daily -check A1c, TSH and lipids -follow-up echo -tele Code status is full code. COVID negative. DVT prophylaxis nothing, low risk Proxy is Dean. I have reviewed home meds and used all available resources to reconcile the home meds. This patient will be admitted as observation and will require less than 2 midnights of hospital time to treat chest pain. Time Spent With Patient Critical Care time: I spent a total of [] minutes of critical care time on this patient's care today; this time is exclusive of procedural time.
[2022-06-07] MEDS: ASPIRIN 81 MG CHEW TAB 324 MG PO (12:04)
[2022-06-07] MEDS: ONDANSETRON 4 MG/2 ML INJ IV (12:04)
[2022-06-07 12:13] LABS: Hemoglobin A1C% w Est Avg Glu 5.9 % (4.0-6.0)
[2022-06-07 12:21] LABS: NT-proBNP (BNP-Adult 18+) < 11 pg/mL (<125)
[2022-06-07 12:27] LABS: Troponin I < 0.012 ng/mL (0.01-0.034)
[2022-06-07 12:31] LABS: Cholesterol 173 mg/dL (140-199); HDL Cholesterol 31 mg/dL (40-60); LDL Cholesterol Calculated 96 mg/dL (<100); Triglycerides 230 mg/dL (35-150)
[2022-06-07 12:44] LABS: TSH w/ Reflex to FT4 2.42 uIU/mL (0.47-4.68)
[2022-06-07 12:58] LABS: COVID19 -Nasal RAPID Negative (Negative)
[2022-06-07 14:51] LABS: Troponin I < 0.012 ng/mL (0.01-0.034)
== END 2022-06-07 14:45 | disposition left against medical advice (07) ==
LOC: ED 11:23 → AC 14:31
PROVIDERS: Student in an Organized Health Care Education/Training Program; Emergency Provider Emergency Medicine; PCP Internal Medicine; Referring Provider Emergency Medicine
DX: R07.9 Chest pain, unspecified (principal); Z53.29 Procedure and treatment not carried out because of patient's decision for other reasons; Z20.822 Contact with and (suspected) exposure to COVID-19
CPT/HCPCS: 36415; 71045; 80053; 80061; 82550; 83036; 83690; 83735; 83880; 84443; 84484; 85025; 85610; 85730; 87635; 93005; 93010; 93306; 96374; 99284; C9803; J2405

== ENCOUNTER → 2024-03-18 12:42 | Outpatient (CLI) | payer OTHER, SELFPAY ==
--- NOTE | 2024-03-18 12:46 | DI.US.S_ITS ---
PROCEDURE: US ABDOMEN LIMITED INDICATIONS: ROUTINE SCREENING/R/O CYST TECHNIQUE: Real-time focused scanning was performed of the lower back, with image documentation. COMPARISON: Located Within [facility], US, ABDOMEN LIMITED, 06/07/2017, 8:53. FINDINGS: Focused ultrasound examination of right lower back at patient's reported area of palpable lump shows a 4.4 x 0.8 x 1.0 cm slightly hypoechoic structure within deep soft tissue and show no internal vascularity. This area is similar in echotexture to adjacent subcutaneous fat. IMPRESSION: Finding likely represent a small lipoma in right lower back soft tissue as described above. Clinical and imaging follow-up is recommended. Dictated by: Sander Rucker M.D. on 03/18/2024 at 17:00 Approved by: Sander Rucker M.D. on 03/18/2024 at 17:02
== END ==
PROVIDERS: PCP Internal Medicine; Referring Provider Internal Medicine; Visit Provider Internal Medicine
DX: R22.2 Localized swelling, mass and lump, trunk (principal)
CPT/HCPCS: 76705

== ENCOUNTER → 2024-04-27 08:07 | Outpatient (CLI) | payer OTHER, SELFPAY ==
--- NOTE | 2024-04-27 08:08 | DI.MG.S_ITS ---
BILATERAL DIGITAL SCREENING MAMMOGRAM 3D/2D WITH CAD: 04/27/2024 CLINICAL: Routine screening. Family hsitory of Breast Cancer. Comparison is made to exam dated: 06/05/2021 mammogram - [facility]. There are scattered areas of fibroglandular density (category b / 25%-50% glandular tissue). Current study was also evaluated with a Computer Aided Detection (CAD) system. No significant masses, calcifications, or other findings are seen in either breast. There has been no significant interval change. IMPRESSION: NEGATIVE There is no mammographic evidence of malignancy. A 1 year screening mammogram is recommended. Based on the Tyrer Cuzick model (a risk assessment model) the patient's lifetime risk is 10.5% and her 10 year risk is 1.9%. According to the ACR, ACS, and NCCN guidelines, an annual breast MRI exam along with mammogram is recommended if the patient's lifetime risk is 20% or greater. This exam was interpreted at Station ID: [id number]. NOTE: For mammograms, a report in lay terms will be sent to the patient. Approximately 15% of breast malignancies will not be visualized mammographically. In the management of a palpable breast mass, a negative mammogram must not discourage biopsy of a clinically suspicious lesion. Electronically Signed By: Jeremy soria/[email or web address]:04/27/2024 14:03:12 letter sent: Normal Exam ACR BI-RADS Category 1: Negative
== END ==
PROVIDERS: PCP Internal Medicine; Referring Provider Internal Medicine; Visit Provider Internal Medicine
DX: Z12.31 Encounter for screening mammogram for malignant neoplasm of breast (principal); Z80.3 Family history of malignant neoplasm of breast
CPT/HCPCS: 77063; 77067

== ENCOUNTER → 2024-10-19 16:36 | Outpatient (CLI) | payer OTHER, SELFPAY ==
--- NOTE | 2024-10-19 16:38 | DI.US.S_ITS ---
PROCEDURE: US SOFT TISSUE HEAD AND NECK INDICATIONS: PERSISTENT TENDER LYMPHADENOPATHY B/L CERVICAL TECHNIQUE: Real-time scanning was performed of the neck region of interest, with image documentation. COMPARISON: None. FINDINGS: Bilateral nonenlarged deep cervical lymph nodes measure up to 0.7 cm on the right and 0.9 cm on the left in short axis. IMPRESSION: Bilateral normal appearing cervical lymph nodes Approved by: Bernabe Metz M.D. on 10/20/2024 at 16:33
== END ==
PROVIDERS: PCP Internal Medicine; Referring Provider Internal Medicine; Visit Provider Internal Medicine
DX: R59.0 Localized enlarged lymph nodes (principal)
CPT/HCPCS: 76536